=== PATIENT | male | born 1955 | race Caucasian/White ===

== ENCOUNTER 2016-04-09 11:28 | Emergency (ER) | payer OTHER ==
[~2016-04-09] VITALS: Ht 177.8 cm; Wt 82.0 kg
[2016-04-09 11:29] VITALS: BP 160/97; PULSE 84; RESP 16; TEMP 97.5; O2SAT 94
--- NOTE | 2016-04-09 11:45 | PD ---
HPI Chief Complaint: Abdominal Pain Time Seen by Provider: 11:45 Travel History International Travel<30 days: No Contact w/Intl Traveler<30days: No Traveled to known affect area: No History of Present Illness HPI 60-year-old male with history of partial gastric resection secondary to trauma, pancreatitis presents to the ED for evaluation of one month history of malaise, abdominal bloating, episodic nausea and vomiting. The patient complains of "feeling rundown" over the past month. He also complains of anorexia secondary to early satiety, abdominal bloating. Patient endorses 3 or 4 episodes of sudden nausea and nonbloody, non-bilious vomiting over the last month. He states that the nausea is resolved after these episodes. He cannot correlate these vomiting episodes to any other event. He also endorses 4/10, generalized headache, similar to previous headaches. He denies dizziness, vision changes associated with the headaches. Denies recent history of fever, chills, chest pain, palpitations. He endorses dyspnea on exertion. He is a current smoker, endorses chronic cough, occasionally productive of yellow sputum. Endorses daily, well-formed bowel movement. He endorses a 3 day history of very dark stools which occurred approximately one month ago. He endorses history of hemorrhoids and occasional BRBPR. Patient also endorses strong history of cancer in his family. He states that he has not been evaluated by a physician in over a year when he was admitted to the hospital for sepsis related to cholecystitis. He underwent a laparoscopic cholecystectomy at that time. Patient does not have a primary care provider. [facility] Social History Alcohol Use: Yes (social) Tobacco Use: Yes (44 years) Substance Use: Yes (occasional marijuana. endorses distant history cocaine. ) Allergies-Medications (Allergen,Severity, Reaction): Coded Allergies: Penicillin (Verified Allergy, Unknown, 04/09/16) Reported Meds & Prescriptions Reported Meds & Active Scripts Active No Active Prescriptions or Reported Medications Review of Systems Except as stated in HPI: all other systems reviewed are Neg Physical Exam Narrative GENERAL: Well-nourished, well-developed pleasant white male in no acute distress. SKIN: Warm and diaphoretic HEAD: Normocephalic. EYES: No scleral icterus. No injection or drainage. NECK: Supple, trachea midline. No JVD or lymphadenopathy. CARDIOVASCULAR: Regular rate and rhythm without murmurs, gallops, or rubs. 2+ DP and radial pulses bilaterally. RESPIRATORY: Breath sounds clear and equal bilaterally. No accessory muscle use. GASTROINTESTINAL: Abdomen firm, mildly distended, tender to palpation in the epigastric and left upper quadrant areas. No voluntary guarding. No palpable masses. RECTAL EXAM: No masses or tenderness, stool is brown. Guaiac negative. MUSCULOSKELETAL: No cyanosis, or edema. BACK: Nontender without obvious deformity. No CVA tenderness. Data Data Last Documented VS Vital Signs Date Time Temp Pulse Resp B/P Pulse Ox O2 Delivery O2 Flow Rate FiO2 04/09/16 11:29 97.5 84 16 160/97 94 Room Air Orders Complete Blood Count With Diff (04/09/16 12:06) Comprehensive Metabolic Panel (04/09/16 12:06) Lipase (04/09/16 12:06) Lactic Acid (04/09/16 12:06) Prothrombin Time / Inr (Pt) (04/09/16 12:06) Act Partial Throm Time (Ptt) (04/09/16 12:06) Urinalysis - C+S If Indicated (04/09/16 12:06) Ct Abd/Pel W Iv Contrast(Rout) (04/09/16 12:06) Iv Access Insert/Monitor (04/09/16 12:06) Ecg Monitoring (04/09/16 12:06) Oximetry (04/09/16 12:06) NPO (04/09/16 12:06) Electrocardiogram (04/09/16 12:06) Chest, Single Ap (04/09/16 12:14) Troponin I (04/09/16 13:38) Iohexol 350 Inj (Omnipaque 350 Inj) (04/09/16 14:28) Labs Laboratory Tests Test 04/09/16 12:26 White Blood Count 4.5 TH/MM3 Red Blood Count 4.67 MIL/MM3 Hemoglobin 14.6 GM/DL Hematocrit 42.4 % Mean Corpuscular Volume 90.7 FL Mean Corpuscular Hemoglobin 31.2 PG Mean Corpuscular Hemoglobin 34.4 % Concent Red Cell Distribution Width 12.5 % Platelet Count 143 TH/MM3 Mean Platelet Volume 9.8 FL Neutrophils (%) (Auto) 55.2 % Lymphocytes (%) (Auto) 26.8 % Monocytes (%) (Auto) 14.8 % Eosinophils (%) (Auto) 2.3 % Basophils (%) (Auto) 0.9 % Neutrophils # (Auto) 2.5 TH/MM3 Lymphocytes # (Auto) 1.2 TH/MM3 Monocytes # (Auto) 0.7 TH/MM3 Eosinophils # (Auto) 0.1 TH/MM3 Basophils # (Auto) 0.0 TH/MM3 CBC Comment DIFF FINAL Differential Comment Prothrombin Time 11.0 SEC Prothromb Time International 1.0 RATIO Ratio Activated Partial 25.9 SEC Thromboplast Time Sodium Level 138 MEQ/L Potassium Level 4.3 MEQ/L Chloride Level 104 MEQ/L Carbon Dioxide Level 27.7 MEQ/L Anion Gap 6 MEQ/L Blood Urea Nitrogen 12 MG/DL Creatinine 0.77 MG/DL Estimat Glomerular Filtration 103 ML/MIN Rate Random Glucose 193 MG/DL Lactic Acid Level 0.8 mmol/L Calcium Level 9.8 MG/DL Total Bilirubin 0.7 MG/DL Aspartate Amino Transf 186 U/L (AST/SGOT) Alanine Aminotransferase 252 U/L (ALT/SGPT) Alkaline Phosphatase 52 U/L Troponin I LESS THAN 0.02 NG/ML Total Protein 8.2 GM/DL Albumin 3.7 GM/DL Lipase 402 U/L MDM Medical Decision Making Medical Screen Exam Complete: Yes Emergency Medical Condition: Yes Interpretation(s) EKG rate 74, sinus rhythm. TX interval 183, QRS 101, QTc 402. Normal axis. Q waves in lead [address] Review[address] by [address] Fried. Differential Diagnosis GERD versus GI bleed versus anemia versus bowel obstruction versus CBD obstruction versus malignancy versus other Narrative Course 60-year-old male with history of partial gastric resection secondary to trauma, pancreatitis presents for evaluation of one month history of malaise, abdominal bloating, episodic N/V. The patient complains of "feeling rundown" over the past month, complains of anorexia secondary to early satiety, abdominal bloating. Patient endorses 3 or 4 episodes of sudden nausea and NBNB vomiting over the last month. He cannot correlate these vomiting episodes to any other event. He also endorses 4/10, generalized headache, similar to previous headaches. He denies dizziness, vision changes associated with the headaches. Denies recent history of fever, chills, chest pain, palpitations. He endorses dyspnea on exertion. He is a current smoker, endorses chronic cough, occasionally productive of yellow sputum. Endorses daily, well-formed bowel movement. He endorses a 3 day history of very dark stools which occurred approximately one month ago. He endorses history of hemorrhoids and occasional BRBPR. Patient also endorses strong history of cancer in his family. He states that he has not been evaluated by a physician in over a year when he was admitted to the hospital for sepsis related to cholecystitis. He underwent a laparoscopic cholecystectomy at that time. Patient does not have a primary care provider. Vitals reviewed. Patient is hypertensive on presentation. Physical exam reveals a nontoxic-appearing, diaphoretic white male in no acute distress. Chest is clear to auscultation bilaterally. Abdomen firm, tender to palpation in the epigastric and left upper quadrant areas. Rectal exam reveals brown stool, guaiac negative. Active bowel sounds. No suprapubic or CVA tenderness. Equal pulses in the extremities. No lower extremity edema. IV was established. Patient was placed on continuous monitoring. CBC: WBC 4.5. Hemoglobin 14.6. INR 1.0. CMP: AST 186, ALT 252, lipase 402. Glucose 193 UA: EKG as above. CXR: No acute cardiopulmonary process. Cardiac enzymes: Negative. Abdominal CT: Hepatic steatosis, previous cholecystectomy, no acute inflammatory process per radiology read. Patient's vitals remained stable during the course of evaluation. Upon discussing the results of the workup the patient mentions that he was diagnosed with hepatitis C a few years ago. This is a possible source for his elevated transaminases. The patient was encouraged to establish primary care. The ED financial counselor provided him with information for the patient assistance program. He is instructed to complete the paperwork, follow up with the primary care provider. Discussed reasons to return to the ED. He indicated understanding of instructions and was amenable to plan of care. This patient is stable and discharged home. [facility] Point of Care Internal Pos. & Neg. Controls: Passed Fecal Specimen Occult Blood: Negative Diagnosis Primary Impression: Abdominal discomfort Additional Impressions: Nausea & vomiting Qualified Code: R11.2 - Non-intractable vomiting with nausea, unspecified vomiting type Transaminitis Referrals: Primary Care Physician Patient Instructions: Abdominal Pain (ED), General Instructions Additional Instructions: Rest, hydrate. Establish a primary care and follow-up for outpatient evaluation of your episodic abdominal discomfort. Return to the ED for any urgent or emergent medical condition. Scripts No Active Prescriptions or Reported Meds Disposition: 01 DISCHARGE HOME Condition: Stable Bebe Peterson Apr 09, 2016 11:45
[2016-04-09 12:44] LABS: AUTOMATED NEUTROPHIL # 2.5 TH/MM3 (1.8-7.7); BASOPHIL % 0.9 % (0.0-2.0); EOSINOPHIL # 0.1 TH/MM3 (0-0.4); EOSINOPHIL % 2.3 % (0.0-4.0); HEMATOCRIT 42.4 % (39.0-51.0); HEMO FLAGS DIFF FINAL; LYMPH % 26.8 % (9.0-44.0); LYMPHOCYTE # 1.2 TH/MM3 (1.0-4.8); MEAN CELL VOLUME 90.7 FL (80.0-100.0); MEAN CORPUSCULAR HEMOGLOBIN 31.2 PG (27.0-34.0); MEAN CORPUSCULAR HGB CONC 34.4 % (32.0-36.0); MONO % 14.8 % (0.0-8.0); NEUT % 55.2 % (16.0-70.0); PLATELET COUNT 143 TH/MM3 (150-450); RED BLOOD COUNT 4.67 MIL/MM3 (4.50-5.90); RED CELL DISTRIBUTION WIDTH 12.5 % (11.6-17.2); WHITE BLOOD COUNT 4.5 TH/MM3 (4.0-11.0)
[2016-04-09 12:47] LABS: APTT (PATIENT) 25.9 SEC (24.3-30.1)
[2016-04-09 13:05] LABS: ALKALINE PHOSPHATASE 52 U/L (45-117); TOTAL BILIRUBIN ADULT 0.7 MG/DL (0.2-1.0)
[2016-04-09 13:06] LABS: ALT (GPT) 252 U/L (12-78); ANION GAP 6 MEQ/L (5-15); AST (GOT) 186 U/L (15-37); BICARBONATE 27.7 MEQ/L (21.0-32.0); BLOOD UREA NITROGEN 12 MG/DL (7-18); CHLORIDE 104 MEQ/L (98-107); GLOMERULAR FILTRATION RATE 103 ML/MIN (>89); POTASSIUM 4.3 MEQ/L (3.5-5.1); SODIUM (NA) 138 MEQ/L (136-145)
--- NOTE | 2016-04-09 13:55 | RADRPT ---
EXAM DATE/TIME: 04/09/2016 12:35 [facility] COMPARISON: No previous studies available for comparison. INDICATIONS : Short of Breath. MEDICAL HISTORY : None. SURGICAL HISTORY : None. ENCOUNTER: Initial ACUITY: 1 day PAIN SCORE: 0/10 LOCATION: Bilateral chest FINDINGS: Single AP view of the chest. The lungs are clear. Cardiomediastinal silhouette within normal limits. No evidence of pleural effusion or pneumothorax. CONCLUSION: No acute cardiopulmonary disease identified. Natan Rose MD on April 09, 2016 at 13:52 Board Certified Radiologist. This report was verified electronically.
[2016-04-09] MEDS ORDERED: IOHEXOL 350 MG/ML 10 ML VIAL (for RAD DIAG) IV ONE (14:28)
--- NOTE | 2016-04-09 15:18 | RADRPT ---
EXAM DATE/TIME: 04/09/2016 14:13 [facility] COMPARISON: No previous studies available for comparison. INDICATIONS : Epigrastic pain. IV CONTRAST: 91 cc Omnipaque 350 (iohexol) IV ORAL CONTRAST: No oral contrast ingested. RADIATION DOSE: 9.50 CTDIvol (mGy) MEDICAL HISTORY : Pancreatitis. Ulcers. SURGICAL HISTORY : Colon resection. ENCOUNTER: Initial ACUITY: 1 day PAIN SCALE: 5/10 LOCATION: Abdomen TECHNIQUE: Volumetric scanning of the abdomen and pelvis was performed. Using automated exposure control and ad justment of the mA and/or kV according to patient size, radiation dose was kept as low as reasonably achievable to obtain optimal diagnostic quality images. FINDINGS: LOWER LUNGS: The visualized lower lungs are clear. LIVER: Decreased density without lesion. There is no dilation of the biliary tree. Cholecystectomy clips. SPLEEN: Normal size without lesion. PANCREAS: Within normal limits. KIDNEYS: Normal in size and shape. There is no mass, stone or hydronephrosis. ADRENAL GLANDS: Within normal limits. VASCULAR: There is no aortic aneurysm. BOWEL/MESENTERY: The stomach, small bowel, and colon demonstrate no acute abnormality. There is no free intraperitone al air or fluid. Appendix is normal. ABDOMINAL WALL: Within normal limits. RETROPERITONEUM: There is no lymphadenopathy. BLADDER: No wall thickening or mass. REPRODUCTIVE: Within normal limits. INGUINAL: There is no lymphadenopathy or hernia. MUSCULOSKELETAL: Within normal limits for patient age. CONCLUSION: 1. Hepatic steatosis. 2. Previous cholecystectomy. 3. No acute inflammatory process. Jorge Gee MD on April 09, 2016 at 15:15 Board Certified Radiologist. This report was verified electronically.
--- NOTE | 2016-04-09 15:35 | PD ---
Data Data Last Documented VS Vital Signs Date Time Temp Pulse Resp B/P Pulse Ox O2 Delivery O2 Flow Rate FiO2 04/09/16 11:29 97.5 84 16 160/97 94 Room Air Orders Complete Blood Count With Diff (04/09/16 12:06) Comprehensive Metabolic Panel (04/09/16 12:06) Lipase (04/09/16 12:06) Lactic Acid (04/09/16 12:06) Prothrombin Time / Inr (Pt) (04/09/16 12:06) Act Partial Throm Time (Ptt) (04/09/16 12:06) Urinalysis - C+S If Indicated (04/09/16 12:06) Ct Abd/Pel W Iv Contrast(Rout) (04/09/16 12:06) Iv Access Insert/Monitor (04/09/16 12:06) Ecg Monitoring (04/09/16 12:06) Oximetry (04/09/16 12:06) NPO (04/09/16 12:06) Electrocardiogram (04/09/16 12:06) Chest, Single Ap (04/09/16 12:14) Troponin I (04/09/16 13:38) Iohexol 350 Inj (Omnipaque 350 Inj) (04/09/16 14:28) Labs Laboratory Tests Test 04/09/16 12:26 White Blood Count 4.5 TH/MM3 Red Blood Count 4.67 MIL/MM3 Hemoglobin 14.6 GM/DL Hematocrit 42.4 % Mean Corpuscular Volume 90.7 FL Mean Corpuscular Hemoglobin 31.2 PG Mean Corpuscular Hemoglobin 34.4 % Concent Red Cell Distribution Width 12.5 % Platelet Count 143 TH/MM3 Mean Platelet Volume 9.8 FL Neutrophils (%) (Auto) 55.2 % Lymphocytes (%) (Auto) 26.8 % Monocytes (%) (Auto) 14.8 % Eosinophils (%) (Auto) 2.3 % Basophils (%) (Auto) 0.9 % Neutrophils # (Auto) 2.5 TH/MM3 Lymphocytes # (Auto) 1.2 TH/MM3 Monocytes # (Auto) 0.7 TH/MM3 Eosinophils # (Auto) 0.1 TH/MM3 Basophils # (Auto) 0.0 TH/MM3 CBC Comment DIFF FINAL Differential Comment Prothrombin Time 11.0 SEC Prothromb Time International 1.0 RATIO Ratio Activated Partial 25.9 SEC Thromboplast Time Sodium Level 138 MEQ/L Potassium Level 4.3 MEQ/L Chloride Level 104 MEQ/L Carbon Dioxide Level 27.7 MEQ/L Anion Gap 6 MEQ/L Blood Urea Nitrogen 12 MG/DL Creatinine 0.77 MG/DL Estimat Glomerular Filtration 103 ML/MIN Rate Random Glucose 193 MG/DL Lactic Acid Level 0.8 mmol/L Calcium Level 9.8 MG/DL Total Bilirubin 0.7 MG/DL Aspartate Amino Transf 186 U/L (AST/SGOT) Alanine Aminotransferase 252 U/L (ALT/SGPT) Alkaline Phosphatase 52 U/L Troponin I LESS THAN 0.02 NG/ML Total Protein 8.2 GM/DL Albumin 3.7 GM/DL Lipase 402 U/L MDM Supervised Visit with ANTIONETTE: Yes Narrative Course The history, exam, and medical decision-making in the associated midlevel provider note were completed with my assistance. I reviewed and agree with the findings presented. I attest that I had a [id number] encounter with the patient on the same day, and personally performed and documented my assessment and findings in the medical record. *My assessment and Findings: This is a 60-year-old male who presents to the emergency department with abdominal bloating associated with 3-4 weeks of malaise. He doesn't follow with a primary care physician. He was placed on a monitor and an IV was established. Labs were obtained which were all reassuring. CT abdomen and pelvis was obtained which was unremarkable. I am Still concerned about the patient and definitely think he needs an outpatient workup for his chronic fatigue but I think we've sufficiently excluded emergent etiology of his symptoms in the emergency department. He was urged to follow up with primary care. Diagnosis Primary Impression: Abdominal discomfort Additional Impressions: Nausea & vomiting Qualified Code: R11.2 - Non-intractable vomiting with nausea, unspecified vomiting type Transaminitis Referrals: Primary Care Physician Patient Instructions: General Instructions, Abdominal Pain (ED) Additional Instruction: Rest, hydrate. Establish a primary care and follow-up for outpatient evaluation of your episodic abdominal discomfort. Return to the ED for any urgent or emergent medical condition. Scripts No Active Prescriptions or Reported Meds Disposition: 01 DISCHARGE HOME Condition: Stable Candace Fried MD Apr 09, 2016 15:35
--- NOTE | 2016-04-09 16:30 | EKG ---
Date Performed: 04/09/2016 Time Performed: 12:38:17 PTAGE: 60 years EKG: Sinus rhythm POSSIBLE INFERIOR MYOCARDIAL INFARCTION ABNORMAL ECG NO PREVIOUS TRACING DOCTOR: Tiburcio Soto Interpretating Date/Time 04/09/2016 16:29:11
== END 2016-04-09 16:35 | disposition home or self-care (01) ==
LOC: NEPC 11:28
DX: R10.9 Unspecified abdominal pain (principal); R11.2 Nausea with vomiting, unspecified; R74.0 Nonspecific elevation of levels of transaminase and lactic acid dehydrogenase [LDH]; R53.81 Other malaise; R14.0 Abdominal distension (gaseous); R94.31 Abnormal electrocardiogram [ECG] [EKG]; R03.0 Elevated blood-pressure reading, without diagnosis of hypertension; R51 Headache; R06.00 Dyspnea, unspecified; R05 Cough; Z72.0 Tobacco use; Z98.890 Other specified postprocedural states; Z87.19 Personal history of other diseases of the digestive system
CPT/HCPCS: 71010; 74177; 80053; 83605; 83690; 84484; 85025; 85610; 85730; 93005; 99284; Q9967